=== PATIENT | male | born 1965 | race Caucasian/White ===

== ENCOUNTER 2023-08-14 12:49 | Emergency (ER) | payer OTHER, SELFPAY ==
[2023-08-14 12:57] VITALS: BP 133/90
--- NOTE | 2023-08-14 14:28 | ED.GENMED ---
History of Present Illness
General
Chief Complaint: Musculo-Skeletal Complaint
Time Seen by Provider: 08/14/23 13:31
Travel History
Have you had any contact with someone who has COVID-19?: No
Do you have any symptoms of coronavirus? Fever > 100 degrees, chills, cough, shortness of breath, sore throat, loss of taste or smell, muscle aches, or headache?: No
History of Present Illness
History of Present Illness:
58-year-old male presents the emergency department for evaluation of left ring finger swelling and bruising after a fall. Was unable to remove the ring from the digit. Denies other complaints
Past History
Past History
ED Past Medical History: None
ED Past Surgical History: None
Social History
Tobacco: Non-smoker
Personal:
Living: with family
Employment: Employed
Family History
Family History: Other (Noncontributory)
Review of Systems
Review of Systems
Allergies reviewed?: Yes
All Other Systems: ROS reviewed and negative except as documented in HPI and ROS
Phy Exam
Physical Exam
Physical Exam:
GEN: Well appearing, NAD, WDWN
HEENT: Oral mucosa moist, no scleral icterus
Cardiac: Regular rate
Lung: No respiratory distress, no tachypnea
MSK: Diffuse ecchymosis and swelling to the left ring finger distal to the patient's ring, no gross deformity or open wound
Skin: Good color, no pallor or jaundice, no rashes
Neuro: AO x3, moves all extremities freely
Psych: Calm, cooperative
Course
Orders/Labs/Results
Orders:
Orders
08/14/23 13:01
Hand, Left 3 View [CR Hand - Left Min 3 Views] Urgent
Comment:
Reason For Exam: injury
Vital Signs
Initial and Last Documented VS:
Initial Vital Signs
Temp Pulse Resp BP Pulse Ox
98.6 F 83 18 133/90 97
08/14/23 12:57 08/14/23 12:57 08/14/23 12:57 08/14/23 12:57 08/14/23 12:57
Last Documented Vital Signs
Temp Pulse Resp BP Pulse Ox
98.6 F 83 18 133/90 97
08/14/23 12:57 08/14/23 12:57 08/14/23 12:57 08/14/23 12:57 08/14/23 12:57
MDM/Problems Addressed
MDM/Problems Addressed:
X-rays independently interpreted by me are questionable for a volar plate injury to the middle phalanx of the left ring finger however no other gross abnormalities are seen. Anthony taping advised. Patient's ring was removed by myself using
lubricant and strength, small skin tears noted after the procedure and these were dressed with bacitracin and gauze.
*Critical Care Note
Total Time (30-74mins, 75-104mins- exclusive of procedures): Not Applicable
ED Attending Note
-
Portions of this chart may have been created with voice recognition software.� Occasional wrong word or��sound alike� substitutions may have occurred due to the inherent limitations of voice recognition software.
Discharge Plan
Departure
Patient Disposition: Home (Routine Discharge)
Date of Disposition: 08/14/23
Time of Disposition: 14:28
Patient with high blood pressure during this ER visit?: No
Discharge Problem:
Sprain of left ring finger
Instructions: Finger Sprain ED
Prescriptions:
No Action
ascorbic acid (vitamin C) [Vitamin C] 500 MG tablet
1,000 mg PO BID Qty: 56 0RF
Rx Instructions:
Take 1,000 mg twice a day for 14 days
aspirin 81 MG tablet,chewable
81 mg PO DAILY Qty: 14 0RF
Rx Instructions:
Take 81 mg daily for 14 days
albuterol sulfate 1 PUFF HFA aerosol inhaler
2 puff inhalation R [id number] PRN (Reason: shortness of breath) Qty: 1 0RF
zinc sulfate 220 MG capsule
220 mg PO DAILY Qty: 14 0RF
Rx Instructions:
Take 220 mg daily for 14 days
cholecalciferol (vitamin D3) 1,000 UNITS tablet
2,000 units PO DAILY Qty: 28 0RF
Rx Instructions:
Take 2,000 units daily for 14 days
Referrals:
Margie Winter CRNP [Family Provider] -
Activity Restrictions/Additional Instructions:
Anthony tape daily for 2 weeks
Ice often
Take anti inflammatories as needed for pain
Interventions
Interventions:
*Risk Screen - Suicide Last Done: 08/14/23 13:41
*General Assessment Last Done: 08/14/23 13:41
*Neglect/Abuse Screening Last Done: 08/14/23 13:41
*ED COVID-19 Vaccine History Last Done: 08/14/23 13:41
ED-Musculoskeletal Assessment Last Done: 08/14/23 13:43
ED- Neurological Assessment Last Done: 08/14/23 13:43
ED-Skin Assessment Last Done: 08/14/23 13:44
== END 2023-08-14 15:00 | disposition home or self-care (01) ==
LOC: EMR 12:49
PROVIDERS: EMERGENCY PHYSICIAN Student in an Organized Health Care Education/Training Program; FAMILY PHYSICIAN Nurse Practitioner
DX: S63.615A Unspecified sprain of left ring finger, initial encounter (principal); W19.XXXA Unspecified fall, initial encounter
CPT/HCPCS: 99283; 73130